=== PATIENT | female | born 1995 | race African-American/Black ===

== ENCOUNTER 2017-03-14 22:08 | Emergency (ER) | payer OTHER, MEDICAID ==
[~2017-03-14] VITALS: Ht 165.1 cm; Wt 90.0 kg
[2017-03-14 23:01] VITALS: BP 115/73; PULSE 90; RESP 16; TEMP 98.3; O2SAT 100
--- NOTE | 2017-03-15 00:11 | PD ---
HPI Chief Complaint: Psychiatric Symptoms Time Seen by Provider: 00:05 Travel History International Travel<30 days: No Contact w/Intl Traveler<30days: No Traveled to known affect area: No History of Present Illness HPI 21 YO FEMALE [employer]UD[employer] WHO HAS HAD A RECENT BREAKUP WITH BOYFRIEND AND IS CURRENTLY ARGUING/UPSET WITH FATHER. SHE MADE SOME STATEMENTS OF "GOING TO DO SOMETHING STUPID" AND THAT SHE DIDN'T WANT TO BE HERE. PACO ACTED BY TALI GRACIA..... DENIES ALL DENIES PMHX/PSHX PFSH Past Medical History ?: Not Social History Tobacco Use: No Review of Systems Except as stated in HPI: all other systems reviewed are Neg General / Constitutional: No: Fever Eyes: No: Visual changes HENT: No: Headaches Cardiovascular: No: Chest Pain or Discomfort Respiratory: No: Shortness of Breath Gastrointestinal: No: Abdominal Pain Genitourinary: No: Dysuria Musculoskeletal: No: Pain Skin: No Rash Neurologic: No: Weakness Psychiatric: Positive: Suicidal Ideations Endocrine: No: Polydipsia Hematologic/Lymphatic: No: Easy Bruising Physical Exam Narrative GENERAL: SKIN: Warm and dry. HEAD: Atraumatic. Normocephalic. EYES: Pupils equal and round. No scleral icterus. No injection or drainage. ENT: No nasal bleeding or discharge. Mucous membranes pink and moist. NECK: Trachea midline. No JVD. CARDIOVASCULAR: Regular rate and rhythm. RESPIRATORY: No accessory muscle use. Clear to auscultation. Breath sounds equal bilaterally. GASTROINTESTINAL: Abdomen soft, non-tender, nondistended. Hepatic and splenic margins not palpable. MUSCULOSKELETAL: Extremities without clubbing, cyanosis, or edema. No obvious deformities. NEUROLOGICAL: Awake and alert. No obvious cranial nerve deficits. Motor grossly within normal limits. Five out of 5 muscle strength in the arms and legs. Normal speech. PSYCHIATRIC: DEPRESSED mood and SAD affect; TEARFUL Data Data Last Documented VS Vital Signs Date Time Temp Pulse Resp B/P (MAP) Pulse Ox O2 Delivery O2 Flow Rate FiO2 03/14/17 23:01 98.3 90 16 115/73 (87) 100 Room Air Orders Orders Complete Blood Count With Diff (03/14/17 23:04) Basic Metabolic Panel (Bmp) (03/14/17 23:04) Psych Screen (03/14/17 23:04) Drug Screen, Random Urine (03/14/17 23:04) Alcohol (Ethanol) (03/14/17 23:04) MDM Medical Decision Making Medical Screen Exam Complete: Yes Emergency Medical Condition: Yes Medical Record Reviewed: Yes Differential Diagnosis ELECTROLYTE ABNL V ANEMIA V TOXICOLOGY V RELATED CAUSES FOR HER DEPRESSION Diagnosis Primary Impression: PACO ACT-MEDICALLY CLEARED Melvin Eller MD Mar 15, 2017 00:11
[2017-03-15 00:51] LABS: AUTOMATED NEUTROPHIL # 4.2 TH/MM3 (1.8-7.7); BASOPHIL # 0.2 TH/MM3 (0-0.2); BASOPHIL % 2.4 % (0.0-2.0); EOSINOPHIL # 0.5 TH/MM3 (0-0.4); EOSINOPHIL % 6.6 % (0.0-4.0); HEMATOCRIT 28.6 % (35.0-46.0); HEMOGLOBIN 8.6 GM/DL (11.6-15.3); LYMPHOCYTE # 2.5 TH/MM3 (1.0-4.8); MEAN CELL VOLUME 59.4 FL (80.0-100.0); MEAN CORPUSCULAR HEMOGLOBIN 17.9 PG (27.0-34.0); MEAN CORPUSCULAR HGB CONC 30.1 % (32.0-36.0); MEAN PLATELET VOLUME 9.4 FL (7.0-11.0); MONO % 4.8 % (0.0-8.0); MONOCYTE # 0.4 TH/MM3 (0-0.9); NEUT % 54.2 % (16.0-70.0); PLATELET COUNT 225 TH/MM3 (150-450); RED CELL DISTRIBUTION WIDTH 21.1 % (11.6-17.2); WHITE BLOOD COUNT 7.8 TH/MM3 (4.0-11.0)
[2017-03-15 01:07] LABS: BICARBONATE 24.1 MEQ/L (21.0-32.0); BLOOD UREA NITROGEN 14 MG/DL (7-18); CHLORIDE 108 MEQ/L (98-107); CREATININE 0.57 MG/DL (0.50-1.00); GLOMERULAR FILTRATION RATE 164 ML/MIN (>89); GLUCOSE,RANDOM 106 MG/DL (74-106); SODIUM (NA) 139 MEQ/L (136-145)
[2017-03-15 07:11] VITALS: BP 103/56; PULSE 85; RESP 18; TEMP 98.8; O2SAT 100
[2017-03-15 14:14] VITALS: BP 117/63; PULSE 82; RESP 16; TEMP 98.6; O2SAT 100
--- NOTE | 2017-03-15 18:42 | PD ---
Physical Exam Date Seen by Provider: Mar 15, 2017 Time Seen by Provider: 18:00 Narrative I was asked by the psychiatric nursing staff if I was comfortable releasing a Harvey act on this patient. This patient presented after she had acute life stressors. She was initially placed under Harvey act after mom was concerned that she was at risk for harming herself. The patient does agree that she had had acute life stressors secondary to concerns that her family was not able to afford her college. She states she is not suicidal. She is not homicidal. She has no intention of harming herself. Data Data Last Documented VS Vital Signs Date Time Temp Pulse Resp B/P (MAP) Pulse Ox O2 Delivery O2 Flow Rate FiO2 03/15/17 14:14 98.6 82 16 117/63 (81) 100 Room Air Orders Orders Complete Blood Count With Diff (03/14/17 23:04) Basic Metabolic Panel (Bmp) (03/14/17 23:04) Psych Screen (03/14/17 23:04) Drug Screen, Random Urine (03/14/17 23:04) Alcohol (Ethanol) (03/14/17 23:04) Ed Urine Pregnancytest Poc (03/15/17 00:11) Diet Regular Basic (03/15/17 Breakfast) Diet Regular Basic (03/15/17 Lunch) Diet Regular Basic (03/15/17 Dinner) Labs Laboratory Tests Test 03/15/17 00:20 03/15/17 00:25 White Blood Count 7.8 TH/MM3 Red Blood Count 4.80 MIL/MM3 Hemoglobin 8.6 GM/DL Hematocrit 28.6 % Mean Corpuscular Volume 59.4 FL Mean Corpuscular Hemoglobin 17.9 PG Mean Corpuscular Hemoglobin Concent 30.1 % Red Cell Distribution Width 21.1 % Platelet Count 225 TH/MM3 Mean Platelet Volume 9.4 FL Neutrophils (%) (Auto) 54.2 % Lymphocytes (%) (Auto) 32.0 % Monocytes (%) (Auto) 4.8 % Eosinophils (%) (Auto) 6.6 % Basophils (%) (Auto) 2.4 % Neutrophils # (Auto) 4.2 TH/MM3 Lymphocytes # (Auto) 2.5 TH/MM3 Monocytes # (Auto) 0.4 TH/MM3 Eosinophils # (Auto) 0.5 TH/MM3 Basophils # (Auto) 0.2 TH/MM3 CBC Comment DIFF FINAL Differential Comment Blood Urea Nitrogen 14 MG/DL Creatinine 0.57 MG/DL Random Glucose 106 MG/DL Calcium Level 9.0 MG/DL Sodium Level 139 MEQ/L Potassium Level 3.3 MEQ/L Chloride Level 108 MEQ/L Carbon Dioxide Level 24.1 MEQ/L Anion Gap 7 MEQ/L Estimat Glomerular Filtration Rate 164 ML/MIN Ethyl Alcohol Level LESS THAN 3 MG/DL Urine Opiates Screen NEG Urine Barbiturates Screen NEG Urine Amphetamines Screen NEG Urine Benzodiazepines Screen NEG Urine Cocaine Screen NEG Urine Cannabinoids Screen NEG MDM Medical Record Reviewed: Yes Supervised Visit with KAREY: No Narrative Course 21 Year-old female is a current student at [employer], presents under [employer] act yesterday after she was voicing concerns of acute life stressors. Mom is concerned that she was at risk for harming herself. The patient has no intention of harming herself. She has good support network. She states she will come back if she develops any depression or has concerns that need to be addressed. I'm comfortable lifting the Harvey act. Diagnosis Primary Impression: HARVEY ACT-MEDICALLY CLEARED Additional Impressions: acute life stressor Harvey act lifted Scripts No Active Prescriptions or Reported Meds Disposition: 01 DISCHARGE HOME Condition: Stable Royce Carbajal MD Mar 15, 2017 18:42
== END 2017-03-15 19:22 | disposition home or self-care (01) ==
LOC: NEPD 22:08 → NEPJ 03-15 19:22
DX: F43.9 Reaction to severe stress, unspecified (principal)
CPT/HCPCS: 80048; 80307; 84703; 85025; 99284